=== PATIENT | female | born 1985 | race Caucasian/White ===

== ENCOUNTER 2020-06-03 20:52 | Emergency (ER) | payer SELFPAY ==
[~2020-06-03] VITALS: Ht 152.4 cm; Wt 62.6 kg
[2020-06-03 21:00] VITALS: Ht 152.4 cm; Wt 62.6 kg
[2020-06-03 22:02] VITALS: BP 102/60
== END 2020-06-03 22:02 | disposition home or self-care (01) ==
LOC: ED 20:52
DX: U07.1 COVID-19 (principal)
CPT/HCPCS: U0003-CS